=== PATIENT | male | born 1965 | race Two or more races ===

== ENCOUNTER 2017-04-15 02:38 | Emergency (ER) | payer OTHER ==
[~2017-04-15] VITALS: Ht 165.1 cm; Wt 90.0 kg
[2017-04-15] MEDS ORDERED: AMOX-422 PO (02:45)
[2017-04-15] MEDS ORDERED: TETanus/Pertussis (Acell)/Diphther VAC/PF (Tdap-Adult) 0.5ml syringe IM ONE (02:45)
[2017-04-15 03:08] VITALS: BP 121/81
[2017-04-21] MEDS ORDERED: SULF1TAB49 PO (04:23)
== END 2017-04-15 04:36 ==
LOC: ER 02:39
DX: S51.832A Puncture wound without foreign body of left forearm, initial encounter (principal); Z79.899 Other long term (current) drug therapy; W54.0XXA Bitten by dog, initial encounter; Y93.89 Activity, other specified; Y92.89 Other specified places as the place of occurrence of the external cause; Y99.8 Other external cause status
CPT/HCPCS: 73090; 90471; 90715; 99284; A6255; A6446; 96372

== ENCOUNTER 2018-01-18 22:43 | Emergency (ER) | payer MEDICAID ==
[~2018-01-18] VITALS: Ht 165.1 cm; Wt 81.0 kg
[2018-01-18 23:00] VITALS: BP 151/100
== END 2018-01-19 00:22 | disposition home or self-care (01) ==
LOC: ER 22:44
DX: M79.671 Pain in right foot (principal); M79.672 Pain in left foot; L84 Corns and callosities; X58.XXXA Exposure to other specified factors, initial encounter; Y93.01 Activity, walking, marching and hiking; Y92.89 Other specified places as the place of occurrence of the external cause; Y99.8 Other external cause status
CPT/HCPCS: 99281

== ENCOUNTER 2018-04-29 03:20 | Emergency (ER) | payer MEDICAID ==
[~2018-04-29] VITALS: Ht 165.1 cm; Wt 77.0 kg
[2018-04-29 06:46] VITALS: BP 130/63
--- NOTE | 2018-04-29 06:48 | NUR ---
PT HAS HAD THIS HEADACHE FOR 3 DAYS. HAS NOT TIRED ANYTHING OTC. 08/19 PAIN +NAUSEA -VOMITING
[2018-04-29] MEDS ORDERED: acetaminophen 325mg tablet PO ONE (06:55)
[2018-04-29] MEDS ORDERED: AZIT250T83 PO (06:56)
== END 2018-04-29 07:03 | disposition home or self-care (01) ==
LOC: ER 03:20
DX: J01.20 Acute ethmoidal sinusitis, unspecified (principal)
CPT/HCPCS: 99283